=== PATIENT | female | born 1950 | race Caucasian/White ===

== ENCOUNTER 2022-11-27 07:27 | Outpatient (CLI) | payer OTHER | END 2022-11-27 07:31 | disposition home or self-care (01) | LOC: TOM 07:27 | PROVIDERS: ATTEND Specialist | DX: K62.89 Other specified diseases of anus and rectum (principal); K60.3 Anal fistula; R19.4 Change in bowel habit; R10.2 Pelvic and perineal pain; K57.30 Diverticulosis of large intestine without perforation or abscess without bleeding; R10.9 Unspecified abdominal pain ==

== ENCOUNTER 2022-12-24 09:30 | Outpatient (CLI) | payer OTHER | END 2022-12-24 09:42 | disposition home or self-care (01) | LOC: RX STUDY 09:30 | PROVIDERS: ATTEND Specialist | DX: K62.89 Other specified diseases of anus and rectum (principal); K60.3 Anal fistula; R19.4 Change in bowel habit; R10.2 Pelvic and perineal pain; K57.30 Diverticulosis of large intestine without perforation or abscess without bleeding; R10.9 Unspecified abdominal pain ==

== ENCOUNTER 2023-04-05 09:45 | Inpatient (IN) | payer OTHER ==
[~2023-04-05] VITALS: Ht 157.5 cm; Wt 59.0 kg
[2023-04-06] MEDS ORDERED: PREVACID30 M1 PO (10:42)
[2023-04-06] MEDS ORDERED: IRBESARTAN150 MG PO (10:42)
[2023-04-06] MEDS ORDERED: LEVO-T100 MCG PO (10:42)
[2023-04-06] MEDS ORDERED: ATORVASTATIN CA40 MG PO (10:42)
[2023-04-06] MEDS ORDERED: TOPROL XL25 M1 PO (10:43)
[2023-04-06] MEDS ORDERED: CLONAZEPAM0.5 MG PO (10:43)
[2023-04-08 13:14] LABS: HEMATOCRIT 35.4 % (36.0-45.00); HEMOGLOBIN 11.7 g/dL (12.0-15.00); MEAN CELL VOLUME 92.3 fL (80.00-100.00); MEAN CORPUSCULAR HEMOGLOBIN 30.4 pg (27.00-32.0); PLATELET COUNT 262 K/uL (150-450); RED BLOOD COUNT 3.84 M/uL (4.00-6.00); RED CELL DISTRIBUTION WIDTH 13.7 % (11.5-14.5)
[2023-04-08 13:27] LABS: ALBUMIN 3.5 gm/dL (3.4-5.0); CALCIUM 9.2 mg/dL (8.5-10.1); CREATININE SERUM 0.73 mg/dL (0.55-1.02); GFR 78.59; MAGNESIUM 1.7 mg/dL (1.8-2.4); PHOSPHOROUS 3.8 mg/dL (2.5-4.9); POTASSIUM 5.24 mEq/L (3.5-5.1)
[2023-04-09 06:25] LABS: HEMATOCRIT 31.2 % (36.0-45.00); HEMOGLOBIN 10.7 g/dL (12.0-15.00); MEAN CELL VOLUME 90.3 fL (80.00-100.00); MEAN CORPUSCULAR HEMOGLOBIN 30.9 pg (27.00-32.0); MEAN CORPUSCULAR HGB CONC 34.3 g/dl (32.0-36.0); PLATELET COUNT 216 K/uL (150-450); RED BLOOD COUNT 3.46 M/uL (4.00-6.00)
[2023-04-09 07:04] LABS: ALBUMIN 2.8 gm/dL (3.4-5.0); CALCIUM 7.9 mg/dL (8.5-10.1); CREATININE SERUM 0.63 mg/dL (0.55-1.02); GFR 93.15; MAGNESIUM 1.7 mg/dL (1.8-2.4); PHOSPHOROUS 3.1 mg/dL (2.5-4.9); POTASSIUM 4.09 mEq/L (3.5-5.1)
[2023-04-10 06:48] LABS: HEMATOCRIT 27.5 % (36.0-45.00); HEMOGLOBIN 9.4 g/dL (12.0-15.00); MEAN CELL VOLUME 90.1 fL (80.00-100.00); MEAN CORPUSCULAR HEMOGLOBIN 30.7 pg (27.00-32.0); PLATELET COUNT 181 K/uL (150-450); RED BLOOD COUNT 3.05 M/uL (4.00-6.00); RED CELL DISTRIBUTION WIDTH 14.2 % (11.5-14.5)
[2023-04-10 07:54] LABS: ALBUMIN 2.5 gm/dL (3.4-5.0); CALCIUM 8.1 mg/dL (8.5-10.1); CREATININE SERUM 0.46 mg/dL (0.55-1.02); GFR 133.91; MAGNESIUM 2.2 mg/dL (1.8-2.4); POTASSIUM 3.88 mEq/L (3.5-5.1)
[2023-04-10 08:45] LABS: PHOSPHOROUS 1.6 mg/dL (2.5-4.9)
[2023-04-10] MEDS ORDERED: PERCOCET 5-3251 EACH PO (12:55)
== END 2023-04-10 14:39 | disposition home or self-care (01) | DRG 330 ==
LOC: SURH 04-08 05:12 → O/R 04-08 05:12 → SURG 04-08 07:00 → SURH 04-08 14:54
PROVIDERS: ADMIT Surgery; ATTEND Surgery
PROC: 0DBP4ZZ Excision of Rectum, Percutaneous Endoscopic Approach (ICD-10-PCS; 2023-04-08)
PROC: 0DJD8ZZ Inspection of Lower Intestinal Tract, Via Natural or Artificial Opening Endoscopic (ICD-10-PCS; 2023-04-08)
PROC: 0WUF47Z Supplement Abdominal Wall with Autologous Tissue Substitute, Percutaneous Endoscopic Approach (ICD-10-PCS; 2023-04-08)
PROC: 0DTN4ZZ Resection of Sigmoid Colon, Percutaneous Endoscopic Approach (ICD-10-PCS; principal; 2023-04-08 07:00)
DX: K57.20 Diverticulitis of large intestine with perforation and abscess without bleeding (principal); N82.3 Fistula of vagina to large intestine; E03.9 Hypothyroidism, unspecified; E78.5 Hyperlipidemia, unspecified